=== PATIENT | female | born 1980 | race Caucasian/White ===

== ENCOUNTER 2016-09-08 15:55 | Emergency (ER) | payer OTHER ==
[2016-09-08 16:50] VITALS: BP 133/78
--- NOTE | 2016-09-08 17:01 | UC ---
Ear Complaint HPI - HPI Summary HPI Summary: B/l ear pain r>L for a few days recently started cough and congestion - History of Current Complaint Chief Complaint: UCEar Stated Complaint: EAR PAIN Time Seen by Provider: 09/08/16 16:56 Hx Obtained From: Patient Hx Last Menstrual Period: 09/03/16 ?: No Onset/Duration: Gradual Onset, Lasting Days, Still Present Severity Initially: Moderate Severity Currently: Moderate Alleviating Factors: Nothing Associated Signs/Symptoms: Positive: URI Symptoms - Allergies/Home Medications Allergies/Adverse Reactions: Allergies Allergy/AdvReac Type Severity Reaction Status Date / Time Gluten Meal Allergy Intermediate celiac Verified 08/20/13 18:48 Home Medications: Home Medications Ascorbic Acid TAB* [Vitamin C TAB*] 1,000 mg PO DAILY 09/08/16 [History Confirmed 09/08/16] Calcium 500 mg PO 09/08/16 [History] Loratadine [Claritin] 10 mg PO 09/08/16 [History] Pseudoephedrine HCl [Sudafed Congestion] 30 mg PO 09/08/16 [History] PMH/Surg Hx/FS Hx/Imm Hx Previously Healthy: Yes Endocrine History Of: Denies: Diabetes, Thyroid Disease Cardiovascular History Of: Denies: Cardiac Disorders, Hypertension Respiratory History Of: Denies: COPD, Asthma GI/ History Of: Denies: Ulcer - Surgical History Surgical History: Yes Surgery Procedure, Year, and Place: ear tubes. ear drum surgery. hymenectomy - Family History Known Family History: Positive: None Family History: no cardiovascular issues reported in family lineage - Social History Occupation: Employed Full-time Lives: With Family Alcohol Use: Occasionally Substance Use Type: None Smoking Status (MU): Never Smoked Tobacco - Immunization History Most Recent Influenza Vaccination: [id number] Season Review of Systems Constitutional: Negative Skin: Negative Eyes: Negative ENT: Ear Ache, Nasal Discharge Respiratory: Cough Cardiovascular: Negative Gastrointestinal: Negative Genitourinary: Negative Motor: Negative Neurovascular: Negative Musculoskeletal: Negative Neurological: Negative Psychological: Negative All Other Systems Reviewed And Are Negative: Yes Physical Exam Triage Information Reviewed: Yes Appearance: Well-Appearing, No Pain Distress, Obese Vital Signs: Initial Vital Signs Temp 98.2 F 09/08/16 16:46 Pulse 82 09/08/16 16:46 Resp 18 09/08/16 16:46 BP 133/78 09/08/16 16:46 Pulse Ox 100 09/08/16 16:46 Vital Signs Reviewed: Yes Eye Exam: Normal Eyes: Positive: Conjunctiva Clear ENT: Positive: Hearing grossly normal, Pharynx normal, Pharyngeal erythema, Nasal congestion, TMs normal - left, TM bulging - right. Negative: Tonsillar swelling, Tonsillar exudate, Trismus, Muffled/hoarse voice Dental Exam: Normal Neck exam: Normal Neck: Positive: Supple, Nontender, No Lymphadenopathy Respiratory Exam: Normal Respiratory: Positive: Chest non-tender, Lungs clear, Normal breath sounds, No respiratory distress, No accessory muscle use Cardiovascular Exam: Normal Cardiovascular: Positive: RRR, No Murmur, Pulses Normal, Brisk Capillary Refill Musculoskeletal Exam: Normal Musculoskeletal: Positive: Strength Intact, ROM Intact, No Edema Neurological Exam: Normal Neurological: Positive: Alert, Muscle Tone Normal Psychological Exam: Normal Psychological: Positive: Normal Response To Family Skin Exam: Normal Ear Complaint Course/Dx - Course Course Of Treatment: flonase, amoxicillin, increase fluids, re-check with pcp prn - Differential Dx/Diagnosis Differential Diagnosis/HQI/PQRI: Cerumen Impaction, Foreign Body, Otitis Externa , Otitis Media, URI Provider Diagnoses: right serrous otitis media, nasal congestion, uri Discharge - Discharge Plan Condition: Stable Disposition: HOME Prescriptions: Amoxicillin CAP* 500 mg PO TID #30 cap Fluticasone NASAL SPRAY 50MCG* [Flonase NASAL SPRAY 50MCG*] 2 spray BOTH NARES DAILY #1 btl Patient Education Materials: Otitis Media (ED), How to Use Nasal [place] (ED) Referrals: Faye Rene MD [Primary Care Provider] - If Needed
== END 2016-09-08 17:13 | disposition home or self-care (01) ==
LOC: UCEAST 15:55
DX: H65.91 Unspecified nonsuppurative otitis media, right ear (principal); J06.9 Acute upper respiratory infection, unspecified; R09.81 Nasal congestion
CPT/HCPCS: 99212; G0463

== ENCOUNTER 2017-08-08 17:22 | Emergency (ER) | payer OTHER ==
[2017-08-08 17:35] VITALS: BP 130/55
--- NOTE | 2017-08-08 18:49 | UC ---
Ear Complaint HPI - HPI Summary HPI Summary: 37 y/o female PMHX DM type II presents to the urgent care c/o b/L ear pain with pressure for the past 2 days. Pt states pain is 3/10 and mild subjective fever and decrease hearing yesterday. Pt denies URI, BASSETT, dizziness,cough , chest pain, N/V/D. Pt Hx of Rt ear drum surgery - History of Current Complaint Chief Complaint: UCEar Stated Complaint: EAR PAIN Time Seen by Provider: 08/08/17 18:36 Hx Obtained From: Patient Hx Last Menstrual Period: 08/04/17 ?: No Onset/Duration: Gradual Onset, Lasting Days - 2 days, Still Present, Worse Since - yesterday Severity Initially: Mild Severity Currently: Mild Pain Intensity: 3 Pain Scale Used: 0-10 Numeric Aggravating Factors: Nothing Alleviating Factors: Nothing Associated Signs/Symptoms: Positive: Hearing Loss - Allergies/Home Medications Allergies/Adverse Reactions: Allergies Allergy/AdvReac Type Severity Reaction Status Date / Time Gluten Meal Allergy Intermediate celiac Verified 08/08/17 17:31 Home Medications: Home Medications Ferrous Fumarate [Iron] 08/08/17 [History] Ibuprofen TAB* [Advil TAB*] 400 mg PO PRN 08/08/17 [History] Ranitidine TAB (NF) [Zantac TAB (NF)] 300 mg PO BEDTIME 08/08/17 [History Confirmed 08/08/17] metFORMIN* [Glucophage 500 MG TAB *] 500 mg PO DAILY 08/08/17 [History Confirmed 08/08/17] PMH/Surg Hx/FS Hx/Imm Hx Previously Healthy: Yes Endocrine History: Diabetes GI/ History: Gastroesophageal Reflux Other GI/ History: Celiac disease Psychological History: Depression - Surgical History Surgical History: Yes Surgery Procedure, Year, and Place: ear tubes. ear drum surgery. hymenectomy - Family History Known Family History: Positive: None Family History: no cardiovascular issues reported in family lineage - Social History Alcohol Use: Occasionally Substance Use Type: None Smoking Status (MU): Never Smoked Tobacco - Immunization History Most Recent Influenza Vaccination: [id number] Season Review of Systems Constitutional: Fever - subjective at home Skin: Negative Eyes: Negative ENT: Ear Ache - B/L ear pain and pressure Respiratory: Negative Cardiovascular: Negative Gastrointestinal: Negative Genitourinary: Negative Motor: Negative Neurovascular: Negative Musculoskeletal: Negative Neurological: Negative Psychological: Negative Is Patient Immunocompromised?: No All Other Systems Reviewed And Are Negative: Yes Physical Exam Triage Information Reviewed: Yes Vital Signs: Initial Vital Signs Temp 97.4 F 08/08/17 17:31 Pulse 80 08/08/17 17:31 Resp 17 08/08/17 17:31 BP 130/55 08/08/17 17:31 Pulse Ox 100 08/08/17 17:31 - Additional Comments Vital signs: reviewed General: well developed, well nourished obese female sitting in the examining table w/o any apparent distress. Skin: Manning, warm and dry, no evidence of atopic dermatitis, psoriasis, seborrhea. HEENT: -Head: atraumatic, non tender; no scalp dermatitis. -Eyes: sclera and conjunctiva clear, PERRLA, EOMI -Ears: no pre- or postauricular lymphadenopathy or erythema; RT external ear clear, Rt TM WNL. Left external ear canal clear, LF TM injected wtih yellowish discharge. No vesicles, or bullae. No perforation. -Nose/Face: erythematous and edematous nasal mucosa with clear rhinorrhea, no frontal or maxillary sinus tender to palpation. -Mouth/Throat: Mucous membrane moist, posterior pharynx clear, no erythema or exudates. Neck: supple, FROM, nontender, no lymphadenopathy, no meningismus. Chest: Clear to auscultation, normal breath sounds Abd: soft, Bowel sounds active, Nontender. Back: no spinal or CVAT Neuro: A&O x4, GCS 15, no focal neuro deficits, normal behavior for age. Ear Complaint Course/Dx - Course Course Of Treatment: 37 y/o female PMHX DM type II presents to the urgent care c /o b/L ear pain with pressure for the past 2 days. Pt states pain is 3/10 and mild subjective fever and decrease hearing yesterday. Pt denies URI, BASSETT, dizziness,cough , chest pain, N/V/D.Hx obtained.Pt with left otitis media on examination. Pt Rx Amoxicillin PO. Advised if symptoms do not improve or worsen to return to the urgent care or f/u with PCP for further management. Pt understood and agreed with D/C instructions. - Differential Dx/Diagnosis Differential Diagnosis/HQI/PQRI: Cerumen Impaction, Otitis Externa, Otitis Media , Perforated TM, Pharyngitis, URI Provider Diagnoses: 1- Left acute otitis media Discharge - Discharge Plan Condition: Stable Disposition: HOME Prescriptions: Amoxicillin PO (*) [Amoxicillin 875 MG (*)] 875 mg PO BID #20 tab Patient Education Materials: Otitis Media (ED) Referrals: Faye Rene MD [Primary Care Provider] - If Needed Additional Instructions: 1- Please take the full course of the antibiotic to avoid resistance. 2-Please take ibuprofen PO q6-8hrs prn as instructed after meals to alleviate pain 3-If symptoms do not improve or worsen please return to the urgent care or f/u with your PCP for further evaluation and treatment.
== END 2017-08-08 18:58 | disposition home or self-care (01) ==
LOC: UCEAST 17:22
DX: H66.92 Otitis media, unspecified, left ear (principal); E11.9 Type 2 diabetes mellitus without complications; Z79.84 Long term (current) use of oral hypoglycemic drugs; K21.9 Gastro-esophageal reflux disease without esophagitis; K90.0 Celiac disease; F32.9 Major depressive disorder, single episode, unspecified
CPT/HCPCS: 99212; G0463

== ENCOUNTER 2017-10-23 09:46 | Emergency (ER) | payer OTHER ==
[2017-10-23 10:27] VITALS: BP 129/71
--- NOTE | 2017-10-23 10:41 | UC ---
Ear Complaint HPI - HPI Summary HPI Summary: Pt presents with b/l ear pain for the last week. Over the last 2 days the pain has been moreso in her left ear. Denies fever, chills, headache, dizziness, jaw pain, sinus symptoms, or sore throat. - History of Current Complaint Chief Complaint: UCEar Stated Complaint: EAR PAIN Time Seen by Provider: 10/23/17 10:40 Hx Obtained From: Patient Hx Last Menstrual Period: 10/02/17 Onset/Duration: Gradual Onset Severity Currently: None Pain Intensity: 0 - Allergies/Home Medications Allergies/Adverse Reactions: Allergies Allergy/AdvReac Type Severity Reaction Status Date / Time gluten Allergy Celiac Verified 10/23/17 10:21 Home Medications: Home Medications Cyanocobalamin (Vitamin B-12) [Vitamin B12] 1 odt SL DAILY 10/23/17 [History Confirmed 10/23/17] Montelukast Sodium TAB* [Singulair 5 mg TAB*] 1 tab PO DAILY 10/23/17 [History Confirmed 10/23/17] PMH/Surg Hx/FS Hx/Imm Hx Endocrine History: Diabetes Respiratory History: Asthma Psychological History: Anxiety, Depression - Surgical History Surgical History: Yes Surgery Procedure, Year, and Place: ear tubes. ear drum surgery. hymenectomy - Family History Known Family History: Positive: None Family History: no cardiovascular issues reported in family lineage - Social History Occupation: Employed Full-time Lives: With Family Alcohol Use: Rare Substance Use Type: None Smoking Status (MU): Never Smoked Tobacco - Immunization History Most Recent Influenza Vaccination: [id number] Season Review of Systems Constitutional: Negative Skin: Negative Eyes: Negative ENT: Ear Ache Respiratory: Negative Cardiovascular: Negative Gastrointestinal: Negative Neurological: Negative Psychological: Negative All Other Systems Reviewed And Are Negative: Yes Physical Exam Triage Information Reviewed: Yes Appearance: Well-Appearing, No Pain Distress, Well-Nourished Vital Signs: Initial Vital Signs Temp 98.3 F 10/23/17 10:24 Pulse 80 10/23/17 10:24 Resp 16 10/23/17 10:24 BP 129/71 10/23/17 10:24 Pulse Ox 99 10/23/17 10:24 Vital Signs Reviewed: Yes Eyes: Positive: Conjunctiva Clear. Negative: Conjunctiva Inflamed, Discharge ENT: Positive: Hearing grossly normal, Pharynx normal, TMs normal, Uvula midline , Other - Left ear canal with mild edema and erythema. No drainage or discharge.. Negative: Pharyngeal erythema, Nasal congestion, Nasal drainage, TM bulging, TM dull, TM red, Hoarse voice, Sinus tenderness Neck: Positive: Supple, Nontender, No Lymphadenopathy Respiratory: Positive: Lungs clear, Normal breath sounds, No respiratory distress, No accessory muscle use Cardiovascular: Positive: RRR, No Murmur, Pulses Normal Neurological: Positive: Alert Psychological: Positive: Age Appropriate Behavior Skin: Negative: rashes Ear Complaint Course/Dx - Course Course Of Treatment: Left otitis externa. Eustachian tube dysfunction - Differential Dx/Diagnosis Provider Diagnoses: Left otitis externa. eustachian tube dysfunction Discharge - Discharge Plan Condition: Stable Disposition: HOME Prescriptions: Fluticasone NASAL SPRAY 50MCG* [Flonase NASAL SPRAY 50MCG*] 2 spray BOTH NARES DAILY #1 btl Ofloxacin 0.3% OTIC.SHREYA* [Floxin 0.3% OTIC.SHREYA*] 5 drop LEFT EAR BID #1 btl Patient Education Materials: Otitis Externa (DC) Referrals: Faye Rene MD [Primary Care Provider] - Additional Instructions: If you develop a fever, shortness of breath, chest pain, new or worsening symptoms - please call your PCP or go to the ED. Eustachian Tube Dysfunction The ear is divided into three parts: the external ear includes the visible part of the ear (the pinna) and the ear canal; the middle ear is the air-filled space behind the eardrum that contains the three middle ear bones (the ossicles) ; and the inner ear contains the sensory organs of hearing (cochlea) and balance (semicircular canals). The Eustachian tube is a narrow tube that connects the middle ear to the back of the nose. Normally, the Eustachian tube opens with every swallow or yawn to act as a pressure-equalizing valve for the middle ear. It also serves to drain the mucus produced by the lining of the middle ear. Blockage of the Eustachian tube isolates the middle ear space from the outside environment. The lining of the middle ear absorbs the trapped air and creates a negative pressure that pulls the eardrum inward. The eardrum is thin and pliable , like plastic wrap, and is densely innervated. When it becomes stretched inward , patients often experience pain, pressure, and hearing loss. Long-term blockage of the Eustachian tube leads to the accumulation of fluid in the middle ear space that further increases the pressure and hearing loss. This is called serous otitis media. Should bacteria contaminate this fluid, a middle ear infection may result, called acute otitis media. Chronic blockage of the Eustachian tube is called Eustachian tube dysfunction. This can occur when the lining of the nose becomes irritated and inflamed, narrowing the Eustachian tube opening or its passageway. Illnesses like the common cold or influenza are often to blame. Pollution and cigarette smoke can also cause Eustachian tube dysfunction. In many areas of the country, nasal allergy (allergic rhinitis) is the major cause of Eustachian tube dysfunction. For reasons which are unclear, the incidence of allergies is increasing in the [place]. Obesity can also predispose a patient to Eustachian tube dysfunction because of excess fatty deposits around the passageway of the Eustachian tube. Rarely, Eustachian tube blockage may be the sign of a more serious problem such as nasal polyps, a cleft palate, or a skull base tumor. Young children (especially ages 1 to 6 years) are at particular risk for Eustachian tube dysfunction, serous otitis media, and acute otitis media because they have very narrow Eustachian tubes. Also, they may have adenoid enlargement that can block the opening of the Eustachian tube. Since children in daycare are highly prone to getting upper respiratory tract infections, they tend to get more ear infections compared to children that are cared for at home.
== END 2017-10-23 10:56 | disposition home or self-care (01) ==
LOC: UCEAST 09:46
DX: H60.92 Unspecified otitis externa, left ear (principal); H69.90 Unspecified Eustachian tube disorder, unspecified ear; E11.9 Type 2 diabetes mellitus without complications; J45.909 Unspecified asthma, uncomplicated; F41.9 Anxiety disorder, unspecified; F32.9 Major depressive disorder, single episode, unspecified
CPT/HCPCS: 99212; G0463

== ENCOUNTER 2018-04-03 09:41 | Emergency (ER) | payer OTHER ==
[2018-04-03 09:52] VITALS: BP 120/92
--- NOTE | 2018-04-03 10:28 | UC ---
Abdominal Pain Female HPI - HPI Summary HPI Summary: Four days of left lower quaderant pain. feels gassy and bloated, no nausea vomiting or diarrhea---however she has not been hungry and she is only able to drink water - History of Current Complaint Chief Complaint: UCAbdominalPain Stated Complaint: ABDOMINAL CRAMPING Time Seen by Provider: 04/03/18 10:18 Hx Obtained From: Patient Hx Last Menstrual Period: march ?: No Onset/Duration: Sudden Onset, Lasting Days - 4, Still Present Timing: Constant Pain Intensity: 7 Pain Scale Used: 0-10 Numeric Location: Discrete At: LLQ Radiates: No Character: Cramping Aggravating Factor(s): Food Alleviating Factor(s): NPO Associated Signs and Symptoms: Positive: Decreased Appetite Allergies/Adverse Reactions: Allergies Allergy/AdvReac Type Severity Reaction Status Date / Time gluten Allergy Celiac Verified 04/03/18 09:52 Home Medications: Home Medications Levocetirizine Dihydrochloride [Xyzal Allergy 24Hr] 5 mg PO DAILY 04/03/18 [ History Confirmed 04/03/18] Levothyroxine Sodium 25 mcg PO DAILY 04/03/18 [History Confirmed 04/03/18] PMH/Surg Hx/FS Hx/Imm Hx Endocrine History: Diabetes, Hypothyroidism GI/ History: Gastroesophageal Reflux Psychological History: Depression - Surgical History Surgical History: Yes Surgery Procedure, Year, and Place: ear tubes. ear drum surgery. hymenectomy - Family History Known Family History: Positive: None Family History: no cardiovascular issues reported in family lineage - Social History Occupation: Employed Full-time Lives: With Family Alcohol Use: Rare Substance Use Type: None Smoking Status (MU): Never Smoked Tobacco - Immunization History Most Recent Influenza Vaccination: [id number] Season Review of Systems Constitutional: Negative Skin: Negative Eyes: Negative ENT: Negative Respiratory: Negative Cardiovascular: Negative Gastrointestinal: Abdominal Pain Genitourinary: Negative Motor: Negative Neurovascular: Negative Musculoskeletal: Negative Neurological: Negative Psychological: Negative Is Patient Immunocompromised?: No All Other Systems Reviewed And Are Negative: Yes Physical Exam Triage Information Reviewed: Yes Appearance: Ill-Appearing - mild, Pain Distress - mild, Obese Vital Signs: Initial Vital Signs Temp 97.5 F 04/03/18 09:46 Pulse 78 04/03/18 09:46 Resp 18 04/03/18 09:46 BP 120/92 04/03/18 09:46 Pulse Ox 96 04/03/18 09:46 Vital Signs Reviewed: Yes Eye Exam: Normal Eyes: Positive: Conjunctiva Clear ENT Exam: Normal ENT: Positive: Normal ENT inspection, Hearing grossly normal, Pharynx normal. Negative: Nasal congestion, TMs normal, Trismus, Muffled voice, Hoarse voice Dental Exam: Normal Neck exam: Normal Neck: Positive: Supple, Nontender Respiratory Exam: Normal Respiratory: Positive: Chest non-tender, Lungs clear, Normal breath sounds, No respiratory distress, No accessory muscle use Cardiovascular Exam: Normal Cardiovascular: Positive: RRR, No Murmur, Pulses Normal, Brisk Capillary Refill Abdominal Exam: Other Abdomen Description: Positive: No Organomegaly, Soft, Other: - llq pain. Negative: Guarding, Hernia @, Hepatomegaly, McBurney's Point Tenderness, Peritoneal Signs Bowel Sounds: Positive: Present Musculoskeletal Exam: Normal Musculoskeletal: Positive: Strength Intact, ROM Intact, No Edema Neurological Exam: Normal Neurological: Positive: Alert, Muscle Tone Normal Psychological Exam: Normal Skin Exam: Normal Abd Pain Female Course/Dx - Course Course Of Treatment: npo to ED by private car for further assessment - Differential Dx/Diagnosis Provider Diagnoses: LLQ pain Discharge - Sign-Out/Discharge Documenting (check all that apply): Patient Departure - Discharge Plan Condition: Fair Disposition: HOME-RECOMMEND TO ED Patient Education Materials: Acute Abdominal Pain (ED) Referrals: Faye Rene MD [Primary Care Provider] - Additional Instructions: Please go to the emergency department for further assessment of your pain - Billing Disposition and Condition Condition: FAIR Disposition: Home-Recommend to ED
== END 2018-04-03 10:50 | disposition home health service (06) ==
LOC: UCEAST 09:41
DX: R10.32 Left lower quadrant pain (principal); R14.0 Abdominal distension (gaseous); E03.9 Hypothyroidism, unspecified
CPT/HCPCS: 99212; G0463

== ENCOUNTER 2018-04-03 11:19 | Emergency (ER) | payer OTHER ==
--- NOTE | 2018-04-03 11:39 | ED ---
Abdominal Pain/Female - HPI Summary HPI Summary: This is Wilian Delgado documenting for attending Lance Marc MD. Pt ABLIIO is a 37 y/o F c/o abdominal pain located in the LLQ onset a couple days ago. Pain is described as cramping and rated a 3/10, per triage. Assoc Sx: abd pain. Denies: fever, chills, N/V/D, dysuria, vaginal bleeding/discharge, CP, SOB , increased HR. Denies Hx of diverticulitis: However, she was seen today by Dr. Rene at who was concerned about her Sx being related to diverticulitis. Aggr. factors: Eating. PSHx: Reviewed and N/C. SHx: Occasional EtOH. - History of Current Complaint Chief Complaint: EDAbdPain Stated Complaint: ABD PAIN Time Seen by Provider: 04/03/18 11:31 Hx Obtained From: Patient Hx Last Menstrual Period: march Onset/Duration: Sudden Onset Timing: Intermittent Episode Lasting Severity Currently: Mild Pain Intensity: 3 Pain Scale Used: 0-10 Numeric Location: Discrete At: LLQ Character: Cramping Associated Signs and Symptoms: Negative: Fever, Chest Pain, Blood in Stool, Urinary Symptoms, Vaginal Bleeding, Vaginal Discharge, Nausea, Vomiting, Diarrhea Allergies/Adverse Reactions: Allergies Allergy/AdvReac Type Severity Reaction Status Date / Time gluten Allergy Celiac Verified 04/03/18 11:31 Home Medications: Home Medications Calcium Carbonate [Calcium] 500 mg PO DAILY 04/03/18 [History Confirmed 04/03/18 ] Cyanocobalamin TAB (NF) [B-12 Tabs (Nf)] 5,000 mcg SL DAILY 04/03/18 [History Confirmed 04/03/18] Folic Acid/Multivit-Min/Lutein [Multi-Vitamin Gummies] 2 chw PO DAILY 04/03/18 [ History Confirmed 04/03/18] Iron 18 mg PO DAILY 04/03/18 [History Confirmed 04/03/18] LevoCETirizine TAB (NF) [Xyzal TAB (NF)] 5 mg PO DAILY 04/03/18 [History Confirmed 04/03/18] Levothyroxine TAB* [Synthroid TAB*] 25 mcg PO DAILY 04/03/18 [History Confirmed 04/03/18] Montelukast Sodium TAB* [Singulair TAB*] 5 mg PO DAILY 04/03/18 [History Confirmed 04/03/18] PMH/Surg Hx/FS Hx/Imm Hx Endocrine/Hematology History: Reports: Hx Diabetes - Pre-Diabetic Denies: Hx Thyroid Disease Cardiovascular History: Denies: Hx Hypertension Respiratory History: Denies: Hx Asthma, Hx Chronic Obstructive Pulmonary Disease (COPD) GI History: Denies: Hx Ulcer Musculoskeletal History: Denies: Hx Rheumatoid Arthritis, Hx Osteoporosis - Surgical History Surgery Procedure, Year, and Place: ear tubes. ear drum surgery. hymenectomy Infectious Disease History: No Infectious Disease History: Denies: Hx Clostridium Difficile, Hx Hepatitis, Hx Human Immunodeficiency Virus (HIV), Hx of Known/Suspected MRSA, Hx Shingles, Hx Tuberculosis, Hx Known/ Suspected VRE, Hx Known/Suspected VRSA, History Other Infectious Disease, Traveled Outside the [place] in Last 30 Days - Family History Known Family History: Negative: Cardiac Disease Family History: no cardiovascular issues reported in family lineage - Social History Occupation: Employed Full-time Lives: With Family Alcohol Use: Rare Substance Use Type: Reports: None Smoking Status (MU): Never Smoked Tobacco Review of Systems Negative: Fever, Chills Negative: Chest Pain Negative: Shortness Of Breath Positive: Abdominal Pain. Negative: Vomiting, Diarrhea, Nausea Negative: dysuria, discharge, frequency All Other Systems Reviewed And Are Negative: Yes Physical Exam - Summary Physical Exam Summary: GENERAL: Patient is a well developed and nourished F who is lying comfortable in the stretcher. Patient is not in any acute respiratory distress. HEAD AND FACE: Normocephalic EYES: PERRLA, EOMI x 2. EARS: Hearing grossly intact. MOUTH: Oropharynx within normal limits. NECK: Supple, trachea is midline, no adenopathy, no JVD, no carotid bruit. CHEST: Symmetric, no tenderness at palpation LUNGS: Clear to auscultation bilaterally. No wheezing or crackles. CVS: Regular rate and rhythm, S1 and S2 present, no murmurs or gallops appreciated. ABDOMEN: TTP LLQ. Bowel sounds are normal. No abdominal abnormal pulsations. EXTREMITIES: Full ROM in all major joints, no edema, no cyanosis or clubbing. NEURO: Alert and oriented x 3. No acute neurological deficits. Speech is normal and follows commands. SKIN: Dry and warm Triage Information Reviewed: Yes Vital Signs On Initial Exam: Initial Vitals Temp Pulse Resp BP Pulse Ox 98.4 F 83 20 104/74 99 04/03/18 11:28 04/03/18 11:28 04/03/18 11:28 04/03/18 11:28 04/03/18 11:28 Vital Signs Reviewed: Yes Diagnostics - Vital Signs Vital Signs Temp Pulse Resp BP Pulse Ox 04/03/18 11:28 98.4 F 83 20 104/74 99 - Laboratory Result Diagrams: 04/03/18 14:16 04/03/18 14:16 Lab Statement: Any lab studies that have been ordered have been reviewed, and results considered in the medical decision making process. - CT A/P CT CT Interpretation: Positive (See Comments) - IMPRESSION: Diverticulitis of the sigmoid colon. No evidence of peridiverticular abscess is noted. Normal appendix. Hepatic steatosis noted. CT Interpretation Completed By: Radiologist - Provider has reviewed report. Abdominal Pain Fem Course/Dx - Course Course Of Treatment: Pt ABILIO is a 37 y/o F c/o abdominal pain located in the LLQ onset a couple days ago. Workup is remarkable for leukocytosis with a white count of 13, CT scan of the abdomen and pelvis shows sigmoid diverticulitis accounting for patient's pain. Patient given the first dose of antibiotics here. I discussed the results with patient and she reports feeling better. She is hemodynamically stable upon discharge. Strict return precautions given and she will otherwise follow up with her PCP. admit - Case discussed with hospitalist. I discussed results with patient. The patient agrees with this plan. - Diagnoses Provider Diagnoses: Diverticulitis Discharge - Sign-Out/Discharge Documenting (check all that apply): Patient Departure - Discharge Plan Condition: Stable Disposition: HOME Prescriptions: Ciprofloxacin HCl [Cipro] 500 mg PO BID #20 tablet Ibuprofen 800 mg PO TID 21 Days tablet metroNIDAZOLE [Flagyl] 500 mg PO TID 10 Days #30 tablet Ondansetron [Zofran Odt] 4 mg PO TID #9 tab.rapdis Patient Education Materials: Diverticulitis (ED) Referrals: Faye Rene MD [Primary Care Provider] - 3 Days Additional Instructions: RETURN TO THE EMERGENCY DEPARTMENT FOR CHANGING OR WORSENING SYMPTOMS. Follow up with your primary care physician in 1-3 days. - Billing Disposition and Condition Condition: STABLE Disposition: Home
[2018-04-03] MEDS ORDERED: NS 0.9% 1000 ML* 1,000 ML IV ONE (13:58)
[2018-04-03] MEDS ORDERED: Ketorolac INJ* 30 MG/ML 1 ML VIAL IV PUSH ONE (14:01)
[2018-04-03] MEDS ORDERED: Ondansetron INJ* 2 MG/ML VIAL IV ONE (14:01)
[2018-04-03 14:28] LABS: ABS Basophils 0.1 10^3/ul (0-0.2); ABS Eosinophils 0.3 10^3/ul (0-0.6); ABS Lymphocytes 2.9 10^3/ul (1.0-4.8); ABS Monocytes 0.9 10^3/ul (0-0.8); ABS Neutrophils 9.7 10^3/ul (1.5-7.7); ABS Nucleated RBC 0 10^3/ul; Hematocrit 38 % (35-47); Hemoglobin 12.4 g/dl (12.0-16.0); Lymphocyte % 20.7 % (25-47); Mean Corpuscular HGB Conc 33 g/dl (31-36); Mean Corpuscular Hemoglobin 28 pg (27-31); Mean Corpuscular Volume 84 fL (80-97); Mean Platelet Volume 7.8 um3 (7.4-10.4); Nucleated Red Blood Cells % 0; Platelet Count 403 10^3/ul (150-450); Red Blood Count 4.49 10^6/ul (4.00-5.40); Red Cell Distribution Width 16 % (10.5-15); White Blood Count 13.9 10^3/ul (3.5-10.8)
[2018-04-03 14:44] LABS: Urine Appearance Clear; Urine Blood 1+ (Negative); Urine Color Straw; Urine Ketones Negative (Negative); Urine Protein Negative (Negative); Urine Red Blood Cell Trace(0-2/hpf) (Absent); Urine Specific Gravity 1.003 (1.010-1.030); Urine Urobilinogen Negative (Negative); Urine White Blood Cell 1+(6-10/hpf) (Absent)
[2018-04-03 15:02] LABS: EGFR Non-African American 79.9 (>60)
[2018-04-03] MEDS ORDERED: Iodixanol* (CONTRAST) 320 MG/ML 100 ML SDV IV ONE (15:12)
--- NOTE | 2018-04-03 15:58 | RAD ---
Indication: Left lower quadrant pain. Contrast: Administered 141.1 ml of VISAPAQUE 320 mg/ml CT of the abdomen and pelvis was performed after oral and IV contrast administration. Coronal and sagittal reconstructed images were obtained. Lung bases demonstrate no pleural fluid, nodules or masses. Heart is of normal size and configuration without evidence of pericardial effusion. The liver is normal in size. It is diffusely decreased in density consistent with hepatic steatosis. No focal lesions or intrahepatic duct dilatation is noted. The gallbladder demonstrates no calcified gallstones. No pericholecystic fluid or wall thickening is identified. The pancreas demonstrates no mass or pancreatic duct dilatation. The spleen is normal in size. No adrenal masses are noted. The kidneys demonstrate symmetric nephrograms without focal lesions. No retroperitoneal lymphadenopathy is noted. CT of the pelvis demonstrates no retroperitoneal or pelvic lymphadenopathy. The appendix is visualized and appears normal. There is diverticulosis noted. Marked wall thickening of the sigmoid colon just superior to the urinary bladder and anterior to the uterus is noted with reticulation of fat and a small amount of fluid consistent with diverticulitis of the sigmoid colon. No evidence of peridiverticular abscess is noted. The uterus and ovaries are unremarkable. Urinary bladder is otherwise unremarkable. The bony structures are otherwise unremarkable. IMPRESSION: Diverticulitis of the sigmoid colon. No evidence of peridiverticular abscess is noted. Normal appendix. Hepatic steatosis noted.
[2018-04-03] MEDS ORDERED: Ciprofloxacin TAB* 250 MG PO ONE (16:09)
[2018-04-03] MEDS ORDERED: metroNIDAZOLE TAB* 250 MG PO ONE (16:09)
[2018-04-03 16:26] VITALS: BP 131/85
== END 2018-04-03 16:25 | disposition home or self-care (01) ==
LOC: ED 11:19
DX: K57.32 Diverticulitis of large intestine without perforation or abscess without bleeding (principal); K76.0 Fatty (change of) liver, not elsewhere classified
CPT/HCPCS: 36415; 74177; 80053; 81003; 81015; 83605; 83690; 84702; 85025; 85730; 86140; 87086; 96374; 96375; 99283; A9270-GY; J1885; J2405; Q9967

== ENCOUNTER 2018-05-02 08:43 | Emergency (ER) | payer OTHER ==
[2018-05-02 08:54] VITALS: BP 137/79
--- NOTE | 2018-05-02 08:56 | UC ---
Back Pain HPI - HPI Summary HPI Summary: A 37 y/o F presents to [facility] [place] with c/o constant, bilateral lower to mid back pain onset a few weeks ago and worsening recently. Radiates mildly to her sides. Denies abd pain, fever, dysuria, melena. Aggravating factors: worst upon waking up. Pt states she used a mall massage chair recently which helped alleviate the pain a little. Pt works at a computer all day. Denies recent trauma. Pt had recent dx: diverticulitis. No abd sugeries. Non-smoker. Pt takes metformin; IBP 800mg 1x day which has been helping her sx. - History of Current Complaint Stated Complaint: BACK PAIN Time Seen by Provider: 05/02/18 08:47 Hx Obtained From: Patient Hx Last Menstrual Period: march Onset/Duration: Lasting Weeks, Still Present Timing: Constant Severity Initially: Moderate Severity Currently: Moderate Pain Intensity: 6 Pain Scale Used: 0-10 Numeric Back Pain: Is Diffuse - lower back bilaterally, Radiates To - sides, mildly Aggravating Factor(s): Other - hurts worst upon waking in AM Alleviating Factor(s): OTC Meds - IPB is helping Associated Signs And Symptoms: Positive: Other - neg: urinary sx, melena. Negative: Fever, Abdominal Pain - Allergies/Home Medications Allergies/Adverse Reactions: Allergies Allergy/AdvReac Type Severity Reaction Status Date / Time gluten Allergy Celiac Verified 04/03/18 11:31 PMH/Surg Hx/FS Hx/Imm Hx Previously Healthy: Yes Other Endocrine History: pos: pre-DM Other Cardiovascular History: neg: HTN - Surgical History Surgical History: Yes Surgery Procedure, Year, and Place: ear tubes. ear drum surgery. hymenectomy - Family History Known Family History: Negative: Cardiac Disease, Diabetes Family History: no cardiovascular issues reported in family lineage - Social History Occupation: Employed Full-time Lives: With Family Alcohol Use: Rare Substance Use Type: None Smoking Status (MU): Never Smoked Tobacco - Immunization History Most Recent Influenza Vaccination: [id number] Season Review of Systems Constitutional: Other - neg: fever Gastrointestinal: Other - neg: abd pain Genitourinary: Other - neg: dysuria, melena Musculoskeletal: Other: - pos: back pain All Other Systems Reviewed And Are Negative: Yes Physical Exam - Summary Physical Exam Summary: General: well-appearing, no pain distress Skin: warm, color reflects adequate perfusion, dry Head: normal Eyes: EOMI, BRIELLE ENT: normal Neck: supple, nontender Respiratory: CTA, breath sounds present Cardiovascular: RRR Abdomen: soft, nontender Bowel: present Musculoskeletal: strength/ROM intact; mildly tender to palpation across lumbar back Neurological: sensory/motor intact, A&O x3 Psychological: affect/mood appropriate Triage Information Reviewed: Yes Vital Signs Reviewed: Yes Back Pain Course/Dx - Course Course Of Treatment: BP noted. Medications reviewed. Allergies noted. NO ABD PAIN. NO DYSURIA. NO UTI SX. TREAT MUSCULOSKELETAL; F/U PMD; RECHECK SOONER IF WORSE. - Differential Dx/Diagnosis Provider Diagnoses: LOW BACK PAIN Discharge - Sign-Out/Discharge Documenting (check all that apply): Patient Departure - DC All imaging exams completed and their final reports reviewed: No Studies - Discharge Plan Condition: Stable Disposition: HOME Prescriptions: Cyclobenzaprine TAB* [Flexeril 10 MG TAB*] 10 mg PO TID PRN #15 tab MDD 3 PRN Reason: Pain Patient Education Materials: Acute Low Back Pain (ED), Lower Back Exercises (ED ) Referrals: Faye Rene MD [Primary Care Provider] - Additional Instructions: FOLLOW UP WITH YOUR DOCTOR. GET RECHECKED FOR ANY WORSENING OF YOUR CONDITION; PAIN, WEAKNESS, DIFFICULTY CONTROLLING YOUR BOWEL OR BLADDER OR QUESTIONS OR CONCERNS. - Billing Disposition and Condition Condition: STABLE Disposition: Home - Attestation Statements Document Initiated by Jonibe: Yes Documenting Scribe: Ronda Garcia Provider For Whom Scribe is Documenting (Include Credential): Dr. Gutierrez Mendez MD Scribe Attestation: Ronda Edward scribed for Dr. Gutierrez Mendez MD on 05/02/18 at 1006. Scribe Documentation Reviewed: Yes Provider Attestation: The documentation as recorded by the Ronda gonzalez accurately reflects the service I personally performed and the decisions made by , Dr. Gutierrez Mendez MD
== END 2018-05-02 09:18 | disposition home or self-care (01) ==
LOC: UCEAST 08:43
DX: M54.5 Low back pain (principal); Z91.018 Allergy to other foods
CPT/HCPCS: 99212; G0463